=== PATIENT | female | born 1995 | race Caucasian/White ===

== ENCOUNTER 2016-12-09 15:50 | Emergency (ER) | payer BC ==
[2016-12-09 16:08] VITALS: BP 101/61
--- NOTE | 2016-12-09 16:39 | UC ---
Abdominal Pain Female HPI - HPI Summary HPI Summary: complaint of intermittent pain in abdomen that started 2 days ago started after urinating today felt a sharp pain in her abdomen and down into suprabupic area when urinating mother felt a bump in her abdomen this morning ferreira with urination, slight increase in frequency, no increase in urgency denies fever, back pain LMP -IUD normal BM this morning- no blood in stool not taking any medications for pain - History of Current Complaint Chief Complaint: UCAbdominalPain Stated Complaint: POSSIBLE HERNIA Time Seen by Provider: 12/09/16 16:30 Hx Obtained From: Patient, Family/[employer] Hx Last Menstrual Period: judd IUD Allergies/Adverse Reactions: Allergies Allergy/AdvReac Type Severity Reaction Status Date / Time Acetaminophen [From Percocet] Allergy GI Upset Verified 12/09/16 16:08 Oxycodone [From Percocet] Allergy GI Upset Verified 12/09/16 16:08 PMH/Surg Hx/FS Hx/Imm Hx Previously Healthy: Yes - Surgical History Surgical History: None - Family History Known Family History: Negative: Cardiac Disease, Hypertension, Diabetes - Social History Occupation: Student Lives: Alone Alcohol Use: None Substance Use Type: None Smoking Status (MU): Never Smoked Tobacco Review of Systems Constitutional: Negative Skin: Negative Eyes: Negative ENT: Negative Respiratory: Negative Cardiovascular: Negative Gastrointestinal: Abdominal Pain Genitourinary: Dysuria, Frequency Motor: Negative Neurovascular: Negative Musculoskeletal: Negative Neurological: Negative Psychological: Negative All Other Systems Reviewed And Are Negative: Yes Physical Exam Triage Information Reviewed: Yes Appearance: No Pain Distress, Well-Nourished Vital Signs: Initial Vital Signs Temp 98.3 F 12/09/16 16:03 Pulse 68 12/09/16 16:03 Resp 20 12/09/16 16:03 BP 101/61 12/09/16 16:03 Pulse Ox 98 12/09/16 16:03 Vital Signs Reviewed: Yes Eyes: Positive: Conjunctiva Clear ENT: Positive: Pharynx normal, TMs normal Neck: Positive: No Lymphadenopathy Respiratory: Positive: Lungs clear, Normal breath sounds, No respiratory distress Cardiovascular: Positive: RRR, No Murmur, Pulses Normal Abdomen Description: Positive: Nontender, No Organomegaly, Soft. Negative: CVA Tenderness (R), CVA Tenderness (L), Distended, Guarding Bowel Sounds: Positive: Present Musculoskeletal: Positive: No Edema Neurological: Positive: Alert Psychological Exam: Normal Skin Exam: Normal Abd Pain Female Course/Dx - Course Course Of Treatment: exam completed. abdomen non tender , n abdmonial hernia identified. trace of blood in urine- will treat for UTI- followup with PCP - Differential Dx/Diagnosis Differential Diagnosis: Constipation, Urinary Tract Infection Provider Diagnoses: UTI Discharge - Discharge Plan Condition: Stable Disposition: HOME Prescriptions: Sulfamethox/Trimethoprim DS* [Bactrim DS 800/160 TAB*] 1 tab PO BID #6 tab Patient Education Materials: Urinary Tract Infection in Women (ED) Referrals: Tianna Tidwell NP [Primary Care Provider] - Additional Instructions: Please start antibiotic as directed Increase fluids and rest Take acetaminophen or ibuprofen for fever or pain Please review your discharge instructions. If your symptoms do not improve please call your primary care provider or return to urgent care.
== END 2016-12-09 17:10 | disposition home or self-care (01) ==
LOC: UCEAST 15:50
DX: N39.0 Urinary tract infection, site not specified (principal); Z88.6 Allergy status to analgesic agent; Z88.5 Allergy status to narcotic agent
CPT/HCPCS: 81003; 87086; 99212; G0463